=== PATIENT | female | born 1975 | race Caucasian/White ===

== ENCOUNTER 2020-02-23 09:29 | Outpatient (CLI) | payer OTHER, SELFPAY ==
--- NOTE | ~2020-02-23 | XR_ITS ---
EXAMINATION: XR cervical spine 4-5V DATE: 02/23/2020 16:31 INDICATION: Neck pain. TECHNIQUE: 5 views of cervical spine were obtained. COMPARISON: None. 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 There is 15 degrees levoscoliosis of cervicothorac ic spine. Vertebral body heights are normal. There is mildly decreased disc height at C4-C5, C5-C6, a nd C6-C7. The facet joints are unremarkable. There is mild central canal stenosis at C4-C5, C5-C6, an d C6-C7. No prevertebral soft tissue swelling. IMPRESSION: 1. Mild cervical spondylosis. 2. Cervicothoracic levoscoliosis. Reviewed, dictated and finalized at location A. S VICE PRESIDENT
--- NOTE | 2020-02-23 09:36 | EST_ITS ---
Patient Info Name: Mechelle Ivey Age: 44 years : 1975 Gender: Female Ht: 63 in Wt: 148 lbs BSA: 1.74 m2 Exam Date: 02/23/2020 9:59 AM Exam Location: [facility] Stress Patient Status: Outpatient Admit Date: 02/23/2020 Staff Ordering Physician: Azael Mitchell PA-C Attending Provider: Azael Mitchell PA-C Exercise Technologist: Jana Gutierrez RDCS Exercise Physician: Robb Núñez DO Exam Type: CA stress test treadmill Study Info Indications R06.02 - Shortness of breath A treadmill exercise stress test was performed. Summary 1. 1. Negative Crow exercise stress test for ischemic ST changes by ECG criteria. 2. 2. Good functional capacity, achieving 10 METs of workload. 3. 3. Appropriate HR response to exercise. 4. 4. Appropriate HR recovery at 1 minute post exercise. 5. 5. No imaging with stress testing. 6. 6. Patient informed of the above results. Protocol: Corw Stress ECG Details Stage: REST Duration (min): 0 min : 57 sec Speed (mph): 0.0 Grade (%): 0 HR (bpm): 87 SBP (mmHg): 129 DBP (mmHg): 67 METS: --- Stage: REST Duration (min): 4 min : 24 sec Speed (mph): 0.0 Grade (%): 0 HR (bpm): 84 SBP (mmHg): 129 DBP (mmHg): 67 METS: --- Stage: STAGE 1 Duration (min): 1 min : 0 sec Speed (mph): 1.7 Grade (%): 10 HR (bpm): 119 SBP (mmHg): 129 DBP (mmHg): 67 METS: --- Stage: STAGE 1 Duration (min): 2 min : 0 sec Speed (mph): 1.7 Grade (%): 10 HR (bpm): 117 SBP (mmHg): 129 DBP (mmHg): 67 METS: --- Stage: STAGE 1 Duration (min): 3 min : 0 sec Speed (mph): 1.7 Grade (%): 10 HR (bpm): 129 SBP (mmHg): 144 DBP (mmHg): 77 METS: --- Stage: STAGE 2 Duration (min): 1 min : 0 sec Speed (mph): 2.5 Grade (%): 12 HR (bpm): 137 SBP (mmHg): 144 DBP (mmHg): 77 METS: --- Stage: STAGE 2 Duration (min): 2 min : 0 sec Speed (mph): 2.5 Grade (%): 12 HR (bpm): 151 SBP (mmHg): 152 DBP (mmHg): 78 METS: --- Stage: STAGE 2 Duration (min): 3 min : 0 sec Speed (mph): 2.5 Grade (%): 12 HR (bpm): 151 SBP (mmHg): 152 DBP (mmHg): 78 METS: --- Stage: STAGE 3 Duration (min): 1 min : 0 sec Speed (mph): 3.4 Grade (%): 14 HR (bpm): 165 SBP (mmHg): 130 DBP (mmHg): 77 METS: --- Stage: STAGE 3 Duration (min): 1 min : 55 sec Speed (mph): 3.4 Grade (%): 14 HR (bpm): 168 SBP (mmHg): 130 DBP (mmHg): 77 METS: --- Stage: RECOVERY Duration (min): 0 min : 4 sec Speed (mph): 1.5 Grade (%): 0 HR (bpm): 167 SBP (mmHg): 130 DBP (mmHg): 77 METS: --- Stage: RECOVERY Duration (min): 1 min : 4 sec Speed (mph): 0.0 Grade (%): 0 HR (bpm): 139 SBP (mmHg): 168 DBP (mmHg): 74 METS: --- Stage: RECOVERY Duration (min): 2 min : 4 sec Speed (
[2020-02-23 09:44] LABS: Hematocrit 37.6 % (37.0-47.0); Hemoglobin 12.7 g/dL (12.0-15.0); Mean Corpuscular HGB Conc 33.8 g/dl (32-36); Mean Corpuscular Hemoglobin 32.5 pg (26-34); Mean Corpuscular Volume 96.2 fl (80-100); Mean Platelet Volume 9.4 fl (7.4-10.4); Platelet Count Result 253 k/mm3 (150-375); Red Blood Count 3.91 M/mm3 (4.2-5.4); Red Cell Distribution Width 12.3 % (11.5-14.5); White Blood Count 4.8 K/mm3 (4.5-10.0)
[2020-02-23 09:55] LABS: Alanine Aminotransferase 18 U/L (4-35); Albumin Level 4.1 g/dL (3.5-5.1); Alkaline Phosphatase 55 U/L (38-126); Anion Gap 2 mmol/L (8-16); Aspartate Amino Transferase 26 U/L (14-36); Bilirubin,Total 0.3 mg/dL (0.2-1.3); Blood Urea Nitrogen 9 mg/dL (7-17); Carbon Dioxide 33 mmol/L (22-30); Chloride 104 mmol/L (98-107); Cholesterol 188 mg/dL (0-200); Estimated Glomerular Filt Rate > 60; Glucose 105 mg/dL (65-105); HDL Direct 60 mg/dL; Potassium 4.1 mmol/L (3.4-5.0); Sodium 139 mmol/L (137-145); Triglycerides 75 mg/dL (<150)
[2020-02-23 10:21] LABS: LDL Cholesterol Direct 117 mg/dL
[2020-02-23 11:02] LABS: Folic Acid 5.5 ng/mL (2.76->20)
== END 2020-02-23 09:30 | disposition home or self-care (01) ==
PROVIDERS: PCP Physician Assistant; Visit Provider Physician Assistant
DX: Z00.00 Encounter for general adult medical examination without abnormal findings (principal); R06.02 Shortness of breath; M54.2 Cervicalgia
CPT/HCPCS: 36415; 72050; 80053; 80061; 82607; 82746; 84443; 85027; 93017

== ENCOUNTER 2020-05-19 13:15 | Outpatient (RCR) | payer OTHER, SELFPAY ==
--- NOTE | 2020-03-23 08:52 | PTOPEVAL ---
PHYSICAL THERAPY EVALUATION AND PLAN OF CARE Thank you for referring Mechelle Ivey to [facility].? The patient is scheduled to be seen for therapy? 1x/week for 4 weeks followed by re-assessment to determine further needs. Please review, sign, date and return this plan of care MASON. I agree with and certify that the following plan of care is medically necessary. Referring Physician Date Attending Provider: Azael Mitchell PA-C Evaluation Diagnosis neck pain Onset 05/2019 Subjective Information Reports that since about Query Text:As Reported By Patient/ May she has been having Family an increase in neck pain and neck spasms, but states that she feels like this has been going on for almost her whole life. In May, she started with increased symptoms on the right, but then it switched to the left to be more severe. She does get headaches with this neck pain and she uses heat on the neck which does help. Does not really take medication unless symptoms are really significaint. Diagnostic Tests X-Rays For This Problem Yes: mild spondylosis and central stenosis C4-6; flattend curve of cervical spin Self Report Pain Assessment Left Spine, Cervical Reported Pain Level 0 Pain Description Aching,Tender on Palpation Pain Frequency Chronic,Intermittent Lowest Pain Intensity 0 Greatest Pain Intensity 4 Pain Aggravating Factors Palpation Other Pain Aggravating Factors general activities Pain Behaviors None Cervical and Lumbar ROM Cervical ROM Cervical Flexion (0-60) 60 Query Text:Active in Degrees Cervical Extension (0-70) 50 Query Text:Active in Degrees Cervical Rotation Right (0-90) 74 Query Text:Active in Degrees Cervical Rotation Left (0-90) 58 Query Text:Active in Degrees Upper Extremity Range of Motion General Upper Extremity Range of Motion Reason Not Measured WFL/Left,WFL/Right Gross Upper Extremity Range of Motion left shoulder behind head and Comments behind back end range very mildly limited compared to right Upper Extremity Muscle Strength Testing Scapular/Shoulder Left Scapular Retraction - Middle Trapezius 3+ Fair + Scapular Retraction -
--- NOTE | 2020-05-05 16:52 | PTOPEVAL ---
PHYSICAL THERAPY PROGRESS REPORT Thank you for referring Mechelle Ivey to [facility].? The patient is scheduled to be seen for therapy? for a 2 week follow-up. Please review, sign, date and return this plan of care MASON. I agree with and certify that the following plan of care is medically necessary. Referring Physician Date Attending Provider: Azael Mitchell PA-C Progress Diagnosis neck pain Onset 05/2019 Subjective Information Reports that overall she is Query Text:As Reported By Patient/ feeling significant Family improvement in ability to move her neck. Also reports less tension headaches and less frequent headaches overall. Really pleased with progress and continuing exercises at home. Self Report Pain Assessment Left Spine, Cervical Reported Pain Level 0 Pain Description Aching,Tender on Palpation Pain Frequency Chronic,Intermittent Pain Aggravating Factors Palpation Other Pain Aggravating Factors general activities Pain Behaviors None Pain Score Pain Score 0: Self Report Interventions Used Interventions Used By Clinicians Exercise,Manual Therapy Techniques Pain Relief Interventions Used By Exercise Patient Cervical and Lumbar ROM Cervical ROM Cervical Flexion (0-60) 60 Query Text:Active in Degrees Cervical Extension (0-70) 50 Query Text:Active in Degrees Cervical Rotation Right (0-90) 80 Query Text:Active in Degrees Cervical Rotation Left (0-90) 65 Query Text:Active in Degrees Upper Extremity Muscle Strength Testing Scapular/Shoulder Left Scapular Retraction - Middle Trapezius 3+ Fair + Scapular Retraction - Lower Trapezius 3 Fair Shoulder Flexion Strength 4+ Good + Shoulder Abduction Strength 4+ Good + Shoulder Medial Rotation Strength 4+ Good + Shoulder Lateral Rotation Strength 4+ Good + Right Scapular Retraction - Middle Trapezius 3 Fair Scapular Retraction - Lower Trapezius 3 Fair Shoulder Flexion Strength 5 Normal Shoulder Abduction Strength 5 Normal Shoulder Medial Rotation Strength 4+ Good + Shoulder Lateral Rotation Strength 4 Good Muscle Length Testing Muscle Length Testing Upper Trapezius Muscle Length (R) Moderate Tightness,(L) Moderate Tightness Levaetor Scapulae Muscle Length (R) Moderate Tightness,(L) Moderate Tightness Pectoralis Major Muscle Length (R) Mild Tightness,(L) Mild Tightness Pectoralis Minor Muscle Length (R) Mild Tightness,(L) Mild
--- NOTE | 2020-05-19 14:02 | PTOPEVAL ---
PHYSICAL THERAPY DISCHARGE NOTE Thank you for referring Mechelle Ivey to [facility]. Please review, sign, date and return this plan of care MASON. I agree with and certify that the following plan of care is medically necessary. Referring Physician Date Attending Provider: Azael Mitchell PA-C Discharge Diagnosis neck pain Onset 05/2019 Subjective Information Reports that she has been Query Text:As Reported By Patient/ feeling really well. Has had Family no headaches in general, but also after walking the dogs or start of menstrual cycle she has had no headaches. Quality of sleep is improved. Self Report Pain Assessment Left Spine, Cervical Reported Pain Level 0 Pain Description Aching,Tender on Palpation Pain Frequency Chronic,Intermittent Pain Aggravating Factors Palpation Other Pain Aggravating Factors general activities Pain Behaviors None Patient Cervical and Lumbar ROM Cervical ROM Cervical Flexion (0-60) 60 Query Text:Active in Degrees Cervical Extension (0-70) 50 Query Text:Active in Degrees Cervical Rotation Right (0-90) 80 Query Text:Active in Degrees Cervical Rotation Left (0-90) 75 Query Text:Active in Degrees Upper Extremity Range of Motion General Upper Extremity Range of Motion Reason Not Measured WNL/Left,WNL/Right Gross Upper Extremity Range of Motion shoulders are symmetrical in Comments all ranges of clifford and functional reaching behind head and back Upper Extremity Muscle Strength Testing Scapular/Shoulder Left Scapular Retraction - Middle Trapezius 4- Good - Scapular Retraction - Lower Trapezius 4- Good - Shoulder Flexion Strength 5 Normal Shoulder Abduction Strength 5 Normal Shoulder Medial Rotation Strength 5 Normal Shoulder Lateral Rotation Strength 5 Normal Right Scapular Retraction - Middle Trapezius 4- Good - Scapular Retraction - Lower Trapezius 4- Good - Shoulder Flexion Strength 5 Normal Shoulder Abduction Strength 5 Normal Shoulder Medial Rotation Strength 5 Normal Shoulder Lateral Rotation Strength 5 Normal Muscle Length Testing Muscle Length Testing Upper Trapezius Muscle Length (L) Mild Tightness,(R) Moderate Tightness Levaetor Scapulae Muscle Length (R) Mild Tightness,(L) Moderate Tightness Pectoralis Major Muscle Length (R) Mild Tightness,(L) Mild Tightness Pectoralis Minor Muscle Length (R) Mild Tightness,(L) Mild Tightness Pa
== END 2020-05-20 10:09 | disposition home or self-care (01) ==
LOC: ANHPT 13:15
PROVIDERS: PCP Physician Assistant; Visit Provider Physician Assistant
DX: M54.2 Cervicalgia (principal)
CPT/HCPCS: 97110; 97140; 97161

== ENCOUNTER → 2021-02-25 04:15 | Outpatient (CLI) | payer OTHER, SELFPAY ==
[2021-02-25 17:24] LABS: SARS-CoV-2 RNA PCR Negative
== END ==
PROVIDERS: PCP Internal Medicine; Visit Provider Physician Assistant
DX: Z20.822 Contact with and (suspected) exposure to COVID-19 (principal)
CPT/HCPCS: C9803; U0003; U0005

== ENCOUNTER 2021-07-01 15:30 | Outpatient (CLI) | payer OTHER, SELFPAY ==
--- NOTE | ~2021-07-01 | MM_ITS ---
EXAMINATION: MM screening [facility] BI w marie HISTORY: Screening TECHNIQUE: Craniocaudal and mediolateral oblique 3-D tomosynthesis images were obtained and synthetic 2-D images were generated. CAD analysis was submitted and interpreted. COMPARISON: 04/28/2016 BREAST PARENCHYMAL COMPOSITION: The breasts are heterogenously dense, which may obscure small masses FINDINGS: There is no evidence of suspicious mass, calcification, or architectural distortion to sugg est malignancy in either breast. There has been no suspicious interval change. IMPRESSION: 1. No mammographic evidence of malignancy. 2. Recommend routine screening mammography in one year. BI-RADS Category 1: Negative Reviewed, dictated and finalized at location A. 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
== END 2021-07-01 15:31 | disposition home or self-care (01) ==
LOC: ANHIMG 15:32
PROVIDERS: PCP Internal Medicine; Visit Provider Obstetrics & Gynecology
DX: Z12.31 Encounter for screening mammogram for malignant neoplasm of breast (principal)
CPT/HCPCS: 77063; 77067

== ENCOUNTER 2021-08-22 09:24 | Outpatient (CLI) | payer OTHER, SELFPAY ==
[2021-08-22 09:58] LABS: Hematocrit 39.2 % (37.0-47.0); Hemoglobin 13.4 g/dL (12.0-15.0); Mean Corpuscular HGB Conc 34.2 g/dl (32-36); Mean Corpuscular Hemoglobin 32.8 pg (26-34); Mean Corpuscular Volume 95.8 fl (80-100); Mean Platelet Volume 9.9 fl (7.4-10.4); Platelet Count Result 275 k/mm3 (150-375); Red Blood Count 4.09 M/mm3 (4.2-5.4); Red Cell Distribution Width 12.5 % (11.5-14.5); White Blood Count 4.5 K/mm3 (4.5-10.0)
[2021-08-22 10:13] LABS: Alanine Aminotransferase 15 U/L (4-35); Albumin Level 4.3 g/dL (3.5-5.1); Alkaline Phosphatase 51 U/L (38-126); Anion Gap 6 mmol/L (8-16); Aspartate Amino Transferase 21 U/L (14-36); Bilirubin,Total 0.3 mg/dL (0.2-1.3); Blood Urea Nitrogen 18 mg/dL (7-17); Calcium 9.2 mg/dL (8.4-10.2); Carbon Dioxide 25 mmol/L (22-30); Chloride 105 mmol/L (98-107); Cholesterol 239 mg/dL (0-200); Estimated Glomerular Filt Rate > 60; Glucose 101 mg/dL (65-110); HDL Direct 80 mg/dL; Potassium 4.4 mmol/L (3.4-5.0); Sodium 136 mmol/L (137-145); Triglycerides 49 mg/dL (<150)
[2021-08-22 10:23] LABS: LDL Cholesterol Direct 120 mg/dL
[2021-08-22 11:18] LABS: Folic Acid 6.2 ng/mL (2.76->20)
== END 2021-08-22 09:25 | disposition home or self-care (01) ==
LOC: ANHLAB 09:27
PROVIDERS: PCP Internal Medicine; Visit Provider Physician Assistant
DX: Z00.00 Encounter for general adult medical examination without abnormal findings (principal); R59.1 Generalized enlarged lymph nodes
CPT/HCPCS: 36415; 80053; 80061; 82607; 82746; 84443; 85027; 86308

== ENCOUNTER 2023-08-15 07:48 | Outpatient (CLI) | payer OTHER, SELFPAY ==
--- NOTE | ~2023-08-15 | MM_ITS ---
EXAMINATION: MM screening nikita BI w marie HISTORY: Screening mammogram TECHNIQUE: Craniocaudal and mediolateral oblique 3-D tomosynthesis images were obtained and synthetic 2-D images were generated. CAD analysis was submitted and interpreted. COMPARISON: 07/01/2021 bilateral screening mammogram BREAST PARENCHYMAL COMPOSITION: The breasts are heterogeneously dense, which may obscure small masses . FINDINGS: There is no evidence of suspicious mass, calcification, or architectural distortion to sugg est malignancy in either breast. There has been no suspicious interval change. IMPRESSION: 1. No mammographic evidence of malignancy. 2. Recommend routine screening mammography in one year. BI-RADS Category 1: Negative Reviewed, dictated and finalized at location A.
== END 2023-08-15 07:49 | disposition home or self-care (01) ==
LOC: ANHIMG 07:51
PROVIDERS: PCP Physician Assistant; Visit Provider Obstetrics & Gynecology
DX: Z12.31 Encounter for screening mammogram for malignant neoplasm of breast (principal)
CPT/HCPCS: 77063; 77067

== ENCOUNTER 2024-04-22 09:25 | Outpatient (CLI) | payer OTHER, SELFPAY ==
[2024-04-22 09:42] LABS: Basophils Absolute Auto 0.1 K/mm3 (0.0-0.1); Eosinophils Absolute Auto 0.1 K/mm3 (0-0.3); Eosinophils Percent Auto 2.4 % (0-4.4); Hematocrit 37.8 % (37.0-47.0); Hemoglobin 12.7 g/dL (12.0-15.0); Immature Granulocyte Absolute 0.01 K/mm3 (0.00-0.031); Immature Granulocyte Percent A 0.2 % (0-0.5); Lymphocytes Absolute Auto 0.99 K/mm3 (0.9-3.2); Lymphocytes Percent Auto 19.7 % (18.3-44.2); Mean Corpuscular HGB Conc 33.6 g/dl (32-36); Mean Corpuscular Hemoglobin 32.8 pg (26-34); Mean Corpuscular Volume 97.7 fl (80-100); Mean Platelet Volume 9.4 fl (7.4-10.4); Monocytes Absolute Auto 0.4 K/mm3 (0.1-0.6); Monocytes Percent Auto 8.2 % (2.6-8.5); Neutrophils Absolute Auto 3.4 K/mm3 (1.3-6.7); Neutrophils Percent Auto 68.5 % (45.5-73.1); Platelet Count Result 264 k/mm3 (150-375); Red Blood Count 3.87 M/mm3 (4.2-5.4); Red Cell Distribution Width 12.7 % (11.5-14.5)
[2024-04-22 09:55] LABS: Alanine Aminotransferase 17 U/L (6-35); Albumin Level 4.1 g/dL (3.5-5.1); Alkaline Phosphatase 54 U/L (38-126); Anion Gap 0 mmol/L (4-12); Aspartate Amino Transferase 19 U/L (14-36); Bilirubin,Total 0.4 mg/dL (0.2-1.3); Blood Urea Nitrogen 15 mg/dL (7-17); Calcium 9.3 mg/dL (8.4-10.2); Carbon Dioxide 29 mmol/L (22-30); Chloride 108 mmol/L (98-107); Cholesterol 250 mg/dL (0-200); Estimated Glomerular Filt Rate > 60; Glucose 95 mg/dL (65-110); HDL Direct 83 mg/dL; Potassium 4.3 mmol/L (3.4-5.0); Sodium 137 mmol/L (137-145); Triglycerides 39 mg/dL (<150)
[2024-04-22 10:06] LABS: LDL Cholesterol Direct 126 mg/dL
== END 2024-04-22 09:26 | disposition home or self-care (01) ==
LOC: ANHLAB 09:28
PROVIDERS: PCP Internal Medicine; Visit Provider Internal Medicine
DX: E78.5 Hyperlipidemia, unspecified (principal); Z00.00 Encounter for general adult medical examination without abnormal findings; Z13.29 Encounter for screening for other suspected endocrine disorder
CPT/HCPCS: 36415; 80053; 80061; 84443; 85025